=== PATIENT | female | born 2000 | race Caucasian/White ===

== ENCOUNTER 2023-07-20 21:56 | Emergency (ER) | payer OTHER ==
[~2023-07-20] VITALS: Ht 160 cm; Wt 89.4 kg
[2023-07-20 22:27] VITALS: BP 137/75; PULSE 83; RESP 18; TEMP 97.9; O2SAT 98
[2023-07-20] MEDS ORDERED: cefTRIAXone 1,000 MG in LIDOCAINE MPF 1% 2.1 ML IM ONE (23:05)
[2023-07-20] MEDS ORDERED: CEPH-588 PO (23:06)
[2023-07-20] MEDS ORDERED: LIDOCAINE MPF 1% 5 ML ONE (23:11)
[2023-07-20] MEDS ORDERED: cefTRIAXone 1,000 MG VIAL ONE (23:11)
== END 2023-07-20 23:20 | disposition home or self-care (01) ==
LOC: MED 21:56
DX: L03.311 Cellulitis of abdominal wall (principal); R50.9 Fever, unspecified; Z79.899 Other long term (current) drug therapy
CPT/HCPCS: 96372; 99283; J0696; J2001